=== PATIENT | female | born 1950 ===

== ENCOUNTER → 2025-09-03 11:23 | Outpatient (BNVA) | payer MEDICARE, MEDICAID, SELFPAY | PROVIDERS: Visit Provider Psychiatry & Neurology Neurology | DX: F01.B4 Vascular dementia, moderate, with anxiety (principal); E03.9 Hypothyroidism, unspecified; H54.7 Unspecified visual loss | CPT/HCPCS: 99212 ==

== ENCOUNTER → 2025-09-03 11:23 | Outpatient (AMB) | payer MEDICARE, MEDICAID, SELFPAY ==
--- NOTE | 2025-09-03 12:46 | A.OFFVIS_ITS ---
Intake Visit Reasons: Vascular dementia Allergies No Known Allergies Allergy (Verified 08/01/25 10:37) HPI Comments Details: The patient is a 75-year-old female presenting with memory concerns related to vascular dementia. Past evaluations, including a brain MRI, have revealed multiple small strokes contributing to her diagnosis. Despite these findings, the patient currently notes her memory as intact but shows concern for future decline. She has significant anxiety about potential memory loss affecting responsibilities like property management and daily living activities. She experiences difficulty due to changing caregivers, though her daughter is providing support currently. The patient also effectively manages hypothyroidism with levothyroxine, underscoring her commitment to managing her health conditions. [facility] Medical History (Updated 09/03/25 @ 13:02 by Ran Enriquez MD) Vascular dementia Blindness and low vision Hypertension Cerebral microvascular disease Physical Exam Neuro Other: Mental Status: Alert and awake with normal spontaneity of speech fluency comprehension and anxious affect. She kept on asking same questions again and again. Her vision was completely gone and she was walking with the help of her daughter in his slow and cautious gait. Extrapyramidal: Full facial expressions and blinking. No rigidity. Movements are appropriate with no tremor or abnormality. Speech: Normal; no dysarthria or tremor. Assessment & Plan Assessment & Plan (1) Vascular dementia: Comment: MRI brain WO at [facility] in Sep 2021: Ext MVD. Code(s): F01.50 - Vascular dementia, unspecified severity, without behavioral disturbance, psychotic disturbance, mood disturbance, and anxiety Category: Medical Qualifiers: Dementia severity: moderate Dementia behavioral or psychological symptom: with anxiety Qualified Code(s): F01.B4 - Vascular dementia, moderate, with anxiety Plan Impression: Vascular dementia with anxiety Rec: a: Start sertraline 25mg one a day b: Memantine 5mg bid Medications: New sertraline 25 mg PO DAILY 90 tabs 1RF Refilled memantine (Namenda) 5 mg PO BID 180 tabs 1RF Coding Level of Care Code Est Pt Level 4 (82522) Diagnoses Moderate vascular dementia with anxiety F01.B4 Dementia severity: moderate Dementia behavioral or psychological symptom: with anxiety
--- OUTSIDE RECORDS SUMMARY | 2025-09-03 14:29 | XMS_ITS ---
Author Organization [facility] Care Team Providers Care Spa Associate Name Role Phone Mariely Phillips Unavailable Unavailable Bridget Canales Unavailable Unavailable Sohan Martin Unavailable Unavailable Yudi Pena Unavailable Unavailable Basilio Khan Unavailable Unavailable Allergies and adverse reactions Code CodeSystem Substance Reaction Severity StartDate Concern Status 51656 RXNORM Zoledronic Acid Severe 05/16/2022 activ e Care Team Name Role Address Phone Organization Dates Sohan Martin PCP [address] [facility] [address], [place], [address], [facility] (Office): [facility] 05/16/2022 - 05/16/2022 Mariely Phillips [address] [place], [address], [place] (Office): [facility] 05/16/2022 - 05/16/2022 Bridget Canales [address] [facility] , [place], [address], [place] (Office): [facility] 05/16/2022 - 05/16/2022 Yudi Pena [address] [facility] [address], [place], [address], [place] (Office): [facility] 05/16/2022 - 05/16/2022 Basilio Khan [address] [place], [address], [facility] (Office): [facility] 05/16/2022 - 05/16/2022 Mental Status Section Date Assessment Total Score Description 05/16/2022 CAM 0 No delirium ind icated Insurance Providers Problems Problem # Description Date of onset Resolved Date Code CodeSystem Concern Status 1 CONSTIPATION, UNSPECIFIED 05/16/[address] active 2 DIZZINESS AND GIDDINESS 05/16/[address] active 3 ESSENTIAL (PRIMARY) HYPERTENSION 05/16/[address] active 4 GASTRO-ESOPHAGEAL REFLUX DISEASE WITHOUT ESOPHAGITIS 05/16/[address] active 5 HYPERLIPIDEMIA, UNSPECIFIED 05/16/[address] active 6 HYPOTHYROIDISM, UNSPECIFIED 05/16/[address] active 7 LEGAL BLINDNESS, DEFINED IN [place] 05/16/[address] active 8 NONRHEUMATIC MITRAL (VALVE) PROLAPSE 05/16/[address] active 9 OTHER SEASONAL ALLERGIC RHINITIS 05/16/[address] active 10 UNSPECIFIED GLAUCOMA 05/16/[address] active 11 UNSPECIFIED HEMORRHOIDS 05/16/[address] active 12 VITAMIN DEFICIENCY, UNSPECIFIED 05/16/[address] active Reason for Referral No Reasons for Referral Entered Social History Social History Observation Description Start Date End Date Code Code System Current Smoking Status Tobacco smoking consumption unknown 917204683 SNOMED CT Sex Assigned At Female 1950 17395-6 LOINC Gender Identity Sexual Orientation Vital Signs Code Code System Vitals Name Values and Units Timing Information 99663-0 LOINC Pain Level Value=0.0 05/16/2022 8302-2 LOINC Height Value=62.0 Units=Inches 05/16/2022 97094-4 LOINC Weight Crjpf=308.2 Units=Lbs 9279-1 LOINC Respiratory Rate Value=20.0 Units=/m in 05/16/2022 8462-4 LOINC Blood Pressure-Diastolic Value=92 Un its=mmHg 05/16/2022 8480-6 LOINC Blood Pressure-Systolic Iwjjo=523 Un its=mmHg 05/16/2022 8310-5 LOINC Body Temperature Value=98.2 Units= F 05/16/2022 8867-4 LOINC Heart rate Value=82.0 Units=/min 40779-6 [facility] O2 % BldC Oximetry Value=96.0 Units= % 05/16/2022
--- OUTSIDE RECORDS SUMMARY | 2025-09-03 14:29 | XMS_ITS ---
Author Name [facility] Organization Unknown Care Team Organization Name Specialty Phone Email Start Date End Da te [facility] ACO 06/20/2025 [facility] Rakel Butts Primary [facility] 07/08/2023 06/19/2024 [facility] Mejia, PROVIDER Primary Care 01/06/202306/01 [facility] Lauren Licona Primary Care 09/08/2022 024
== END ==
LOC: HO.HSM 11:23
PROVIDERS: Visit Provider Psychiatry & Neurology Neurology
DX: F01.B4 Vascular dementia, moderate, with anxiety (principal)
CPT/HCPCS: 99214